=== PATIENT | male | born 1995 | race African-American/Black ===

== ENCOUNTER 2018-04-10 07:09 | Emergency (ER) | payer SELFPAY ==
[2018-04-10 07:15] VITALS: BP 139/96
[2018-04-10] MEDS ORDERED: DEXAMETHASONE SOD PHOS INJ 10 MG/1 ML VIAL IV ONE (07:36)
--- NOTE | 2018-04-10 07:44 | ER Document Report ---
ED General - General Chief Complaint: Sore Throat Stated Complaint: SORE THROAT Time Seen by Provider: 04/10/18 07:22 TRAVEL OUTSIDE OF THE [place] IN LAST 30 DAYS: No - HPI Notes: Patient is a 22-year-old male that presents to the emergency department for chief complaint of sore throat and fever. He reports 4 days of fevers as high as 100.7. He denies any coughing. He states he has a sore throat that is painful bilaterally. Pain is sharp and worse with swallowing. He has not tried [id number] medications. He is currently taking amoxicillin which was started 2 days ago as prophylaxis prior to wisdom teeth removal. He denies sick contacts Past Medical History: Negative Past Surgical History: Negative Social History: Denies drugs alcohol and tobacco Family History: Reviewed and noncontributory for presenting illness Allergies: Reviewed, see documented allergy list. REVIEW OF SYSTEMS: CONSTITUTIONAL : fever No chills No diaphoresis No recent illness EENT: No vision changes No congestion sore throat CARDIOVASCULAR: No chest pain No palpitations RESPIRATORY: No shortness of breath No cough No difficulty breathing GASTROINTESTINAL: No abdominal pain No nausea No vomiting No diarrhea GENITOURINARY: No dysuria No hematuria No difficulty urinating MUSCULOSKELETAL: No back pain No leg pain No arm pain SKIN: No rashes No lesions LYMPHATIC: No swollen, enlarged glands. NEUROLOGICAL: No lightheadedness No headache No weakness No paresthesias PSYCHIATRIC: No anxiety No depression PHYSICAL EXAMINATION: Vital signs reviewed, nursing noted reviewed. GENERAL: Well-appearing, well-nourished and in no acute distress. HEAD: Atraumatic, normocephalic. EYES: Eyes appear normal, extraocular movements intact, sclera anicteric, conjunctiva are normal. ENT: nares patent, bilateral tonsillar edema and exudates. Moist mucous membranes. NECK: Normal range of motion, supple with anterior lymphadenopathy LUNGS: Breath sounds clear to auscultation bilaterally and equal. No wheezes rales or rhonchi. HEART: Regular rate and rhythm without murmurs ABDOMEN: Soft, nontender, normoactive bowel sounds. No rebound, guarding, or rigidity. No masses appreciated. EXTREMITIES: Nontender, good range of motion, no pitting or edema. NEUROLOGICAL: No focal neurological deficits. Moves all extremities spontaneously Motor and sensory grossly intact on exam. PSYCH: Normal mood, normal affect. SKIN: Warm, Dry, normal turgor, no rashes or lesions noted on exposed skin - Related Data Allergies/Adverse Reactions: No Known Allergies Allergy (Verified 04/10/18 07:11) Past Medical History - Social History Smoking Status: Never Smoker Family History: Reviewed & Not Pertinent Review of Systems - Review of Systems Notes: Dictated Physical Exam - Vital signs Vitals: Temp Pulse Resp BP Pulse Ox 99.3 F 113 H 14 139/96 H 98 04/10/18 07:13 04/10/18 07:13 04/10/18 07:13 04/10/18 07:13 04/10/18 07:13 - Notes Notes: Dictated Course - Re-evaluation Re-evalutation: 04/10/18 07:42 Vitals reviewed. Nursing notes reviewed. Patient has 4/4 Centor criteria. He is currently on amoxicillin but has only had 2 days. Patient will continue taking his amoxicillin prescription. He was given Decadron for symptomatic treatment. He will follow with primary care. Discharged in stable condition. - Vital Signs Vital signs: Temp Pulse Resp BP Pulse Ox 99.3 F 113 H 14 139/96 H 98 04/10/18 07:13 04/10/18 07:13 04/10/18 07:13 04/10/18 07:13 04/10/18 07:13 Discharge - Discharge Clinical Impression: Strep pharyngitis Condition: Stable Disposition: HOME, SELF-CARE Instructions: Strep Throat ([facility]), Family Physicians / Practices Additional Instructions: Please return to the emergency department if you have any worsening, or concern of your symptoms. Please return to the emergency department if you develop chest pain, difficulty breathing, severe abdominal pain, or ongoing vomiting. Please follow-up with your primary care physician in 2-3 days and any other recommended physicians. If prescribed, take all medications as directed. If you have any questions or concerns do not hesitate to return the emergency department for evaluation. []
== END 2018-04-10 08:22 | disposition home or self-care (01) ==
LOC: ER 07:09
DX: J02.0 Streptococcal pharyngitis (principal); R50.9 Fever, unspecified
CPT/HCPCS: 99282; 96374; J1100